=== PATIENT | male | born 1970 ===

== ENCOUNTER 2016-10-31 20:10 | Observation (INO) | payer BC ==
[2016-10-31 21:34] LABS: BASO # 0.1 K/uL (0.0-0.2); BASO % 0.9 % (0.0-2.0); EOS # 0.1 K/uL (0.0-0.7); EOS % 0.9 % (0.0-4.0); HEMATOCRIT 41.5 % (35.0-51.0); LYMPH # 1.8 K/uL (1.0-4.3); LYMPH % 20.3 % (20.0-40.0); MEAN CELL VOLUME 90.7 fl (80.0-94.0); MEAN CORPUSCULAR HEMOGLOBIN 30.2 pg (27.0-31.0); MEAN CORPUSCULAR HGB CONC 33.3 g/dL (33.0-37.0); MEAN PLATELET VOLUME 7.5 fl (7.2-11.7); MONO # 0.6 K/uL (0.0-0.8); MONO % 6.4 % (0.0-10.0); NEUT # 6.5 K/uL (1.8-7.0); NEUT % 71.5 % (50.0-75.0); RED CELL DISTRIBUTION WIDTH 13.9 % (11.5-14.5); WHITE BLOOD COUNT 9.1 K/uL (4.8-10.8)
--- NOTE | 2016-10-31 21:42 | ED PDOC ---
HPI: Psych/Substance Abuse Time Seen by Provider: 10/31/16 20:22 Chief Complaint (Nursing): Psychiatric Evaluation Chief Complaint (Provider): Psychiatric Evaluation History Per: Patient History/Exam Limitations: no limitations Onset/Duration Of Symptoms: Mins (just prior to arrival) Current Symptoms Are (Timing): Still Present Severity: Moderate Additional Complaint(s): 46 year old male with no pertinent medical history is brought into the ED by the [place] police department for a psychiatric evaluation. Patient was seen wandering on the street behaving bizarrely. Patient requested the removal of sharp objects upon his arrival. Patient was uncooperative with nursing staff. Patient reports recently travelling to [facility], where he injured his head and had a suture repair in the left temporal area. Patient states that he lives in the area (of the ED). He denies having any complaints at this time. PMD: Patient does not have a PMD Past Medical History Reviewed: Historical Data, Nursing Documentation, Vital Signs Vital Signs: Last Vital Signs Temp 100 F H 10/31/16 20:12 Pulse 101 H 10/31/16 20:12 Resp 18 10/31/16 20:12 BP 124/68 10/31/16 20:12 Pulse Ox 99 10/31/16 20:12 - Medical History PMH: No Chronic Diseases - Surgical History Other surgeries: myxoma surgery - Family History Family History: States: No Known Family Hx - Social History Current smoker - smoking cessation education provided: Yes Alcohol: None Drugs: Denies - Home Medications Home Medications: Ambulatory Orders Medication Instructions Recorded Unobtainable 11/01/16 - Allergies Allergies/Adverse Reactions: Allergies Allergy/AdvReac Type Severity Reaction Status Date / Time No Known Allergies Allergy Verified 11/01/16 09:05 Review of Systems ROS Statement: Except As Marked, All Systems Reviewed And Found Negative Physical Exam - Reviewed Nursing Documentation Reviewed: Yes Vital Signs Reviewed: Yes - Physical Exam Appears: Positive for: Well, Non-toxic, No Acute Distress (calm, cooperative) Head Exam: Positive for: ATRAUMATIC (non absorbable sutures in the left temporal area, healing well), NORMOCEPHALIC Skin: Positive for: Normal Color, Warm, Dry Eye Exam: Positive for: Normal appearance, EOMI, PERRL Cardiovascular/Chest: Positive for: Regular Rate, Rhythm Respiratory: Positive for: Normal Breath Sounds. Negative for: Respiratory Distress Gastrointestinal/Abdominal: Positive for: Normal Exam, Soft. Negative for: Tenderness Extremity: Positive for: Normal ROM Neurologic/Psych: Positive for: Alert, Oriented (3x) - Laboratory Results Result Diagrams: 10/31/16 21:27 10/31/16 21:27 - ECG O2 Sat by Pulse Oximetry: 99 (RA) Pulse Ox Interpretation: Normal - CT Scan/US CT head w/o contrast Other Rad Studies (CT/US): Read By Radiologist, Radiology Report Reviewed (see MDM section for findings) Medical Decision Making Medical Decision Makin:22 Initial impression: 46 year old male with acute psychosis. Rule out organic causes. Initial plan: crisis evaluation * CT head w/o contrast * alcohol serum * BMP * drug screen urinary * CBC * ativan 2mg IM * haldol 5mg IM * urinalysis * reevaluation 22:15 CT head read and reviewed by radiologist FINDINGS: [employer] Assistant view: Postsurgical changes of mandible. Brain: Mild atrophy. No intracranial hemorrhage. No definite edema. Ventricles: No hydrocephalus. 0.4 x 0.4 x 0.4 cm hyperdense lesion level of third ventricle. Bones/joints: No acute fracture. Soft tissues: Unremarkable. Sinuses: Scattered minimal mucosal thickening. Mastoid air cells: No mastoid effusion. Orbits: Unremarkable as visualized. IMPRESSION: 1. No definite acute intracranial abnormality. 2. Probable colloid cyst. 3. Incidental/non-acute findings are described above 22:40 Patient is being placed in ED observation pending crisis evalution. See ED observation section for further updates. Scribe Attestation: Documented by Naz Delgado, acting as a scribe for Tania Mirnada MD. Provider Scribe Attestation: All medical record entries made by the Scribe were at my direction and personally dictated by me. I have reviewed the chart and agree that the record accurately reflects my personal performance of the history, physical exam, medical decision making, and the department course for this patient. I have also personally directed, reviewed, and agree with the discharge instructions and disposition. ED OBSERVATION Date of observation admission: 10/31/16 Time of observation admission: 22:40 - Observation admission statement Patient is being placed in observation because:: Pending crisis evaluation. - Goals of Observation Goals of observation are:: Psychiatric stabilization. - Progress Note Progress Note: 10/31/16 22:40 Patient is sleeping comfortably. Vital signs are stable. 10/31/16 23:57 Patient is quietly sleeping, resting comfortably. Vital signs are stable. Disposition - Clinical Impression Clinical Impression: Adjustment disorder - Patient ED Disposition Is Patient to be Admitted: Transfer of Care - Disposition Disposition: Transfer of Care Disposition Time: 00:00 Condition: STABLE Patient Signed Over To: Matthew Dumont Handoff Comments: pending reevaluation after sedation and crisis evaluation
[2016-10-31 21:50] LABS: ALCOHOL SERUM < 10 mg/dl (0-10); BLOOD UREA NITROGEN 17 mg/dl (9-20); CALCIUM 9.9 mg/dL (8.4-10.2); CARBON DIOXIDE 23 mmol/L (22-30); CHLORIDE 108 mmol/L (98-107); GFR AFRICAN-AMERICAN > 60; GLUCOSE,RANDOM 121 mg/dL (75-110); POTASSIUM 3.5 MMOL/L (3.6-5.0); SODIUM 145 mmol/l (132-148)
--- NOTE | 2016-10-31 22:16 | CT ---
EXAM: CT Head Without Intravenous Contrast CLINICAL HISTORY: 46 years old, male; Signs and symptoms; Psychosis or psychotic disorder; Other: AMS bizarre TECHNIQUE: Axial computed tomography images of the head/brain without intravenous contrast. All CT scans at this facility use one or more dose reduction techniques, viz.: automated exposure control; ma/kV adjustment per patient size (including targeted exams where dose is matched to indication; i.e. head); or iterative reconstruction technique. Coronal and sagittal reformatted images were created and reviewed. COMPARISON: No relevant prior studies available. FINDINGS: Lean Manufacturing Engineer view: Postsurgical changes of mandible. Brain: Mild atrophy. No intracranial hemorrhage. No definite edema. Ventricles: No hydrocephalus. 0.4 x 0.4 x 0.4 cm hyperdense lesion level of third ventricle. Bones/joints: No acute fracture. Soft tissues: Unremarkable. Sinuses: Scattered minimal mucosal thickening. Mastoid air cells: No mastoid effusion. Orbits: Unremarkable as visualized. IMPRESSION: 1. No definite acute intracranial abnormality. 2. Probable colloid cyst. 3. Incidental/non-acute findings are described above.
[2016-11-01] VITALS: TEMP 98.1; O2SAT 99
--- NOTE | 2016-11-01 00:05 | ED PDOC ---
- Laboratory Results Result Diagrams: 10/31/16 21:27 10/31/16 21:27 - ECG O2 Sat by Pulse Oximetry: 99 (RA) Pulse Ox Interpretation: Normal Medical Decision Making Medical Decision Makin:00 Pt signed out to provider pending crisis evaluation. Scribe Attestation: Documented by Kayley Lockhart, acting as a scribe for Matthew Dumont MD. Provider Scribe Attestation: All medical record entries made by the Scribe were at my direction and personally dictated by me. I have reviewed the chart and agree that the record accurately reflects my personal performance of the history, physical exam, medical decision making, and the department course for this patient. I have also personally directed, reviewed, and agree with the discharge instructions and disposition. Disposition - Clinical Impression Clinical Impression: Adjustment disorder - POA Present On Arrival: None - Disposition Disposition: Routine/Home Disposition Time: 04:32 Condition: STABLE ED OBSERVATION Date of observation admission: 11/01/16 Time of observation admission: 00:00 - Observation admission statement Patient is being placed in observation because:: Time-intensive ED evaluation. - Goals of Observation Goals of observation are:: Results of ED workup, crisis evaluation, and eventual disposition. - Progress Note Progress Note: 11/01/16 00:00 Patient resting comfortably. Vitals are stable. Pending reevaluation and crisis evaluation. 11/01/16 01:30 Patient is resting comfortably. Vitals are stable. Pending reevaluation and crisis evaluation. 11/01/16 02:58 Vital signs stable. Patient is resting comfortably. Pending reevaluation and crisis evaluation. 11/01/16 04:30 Vital signs stable. Patient is resting comfortably. Pending reevaluation and crisis evaluation. 11/01/16 04:33 Patient has been evaluated by Crisis and does not meet criterion for psychiatric admission, and is psychiatrically stable for discharge home with a diagnosis of Adjustment Disorder. Outpatient follow up instructions provided by [employer].
[2016-11-01 06:03] VITALS: BP 135/62; PULSE 74; RESP 74
== END 2016-11-01 04:32 | disposition home or self-care (01) ==
LOC: H.ER 20:10 → H.EROBSV 22:41
PROVIDERS: ADMIT Emergency Medicine; ATTEND Emergency Medicine
DX: F43.20 Adjustment disorder, unspecified (principal); F17.200 Nicotine dependence, unspecified, uncomplicated
CPT/HCPCS: 70450; 80048; 85025; 96372; 99285; G0378; G0480; J1630; J2060

== ENCOUNTER 2016-11-01 08:48 | Emergency (ER) | payer BC ==
[2016-11-01 08:52] VITALS: TEMP 97
[2016-11-01 09:10] VITALS: BMI 27.3
[2016-11-01] MEDS ORDERED: Sodium Chloride 0.9% 500 ML IV ONE (09:13)
--- NOTE | 2016-11-01 09:13 | ED PDOC ---
HPI: Psych/Substance Abuse Time Seen by Provider: 11/01/16 08:54 Chief Complaint (Nursing): Psychiatric Evaluation Chief Complaint (Provider): Psychiatric Evaluation History Per: Patient History/Exam Limitations: no limitations Onset/Duration Of Symptoms: Hrs Additional Complaint(s): Patient is a 46 y/o M brought in by EMS for acting bizarre. Patient reporting that he was trying to walk home. He is AAOx3 and denies somatic complaints. He was evaluated in ED yesterday for same and was cleared by crisis after normal labs and CT head. He denies drug or alcohol use. He denies SI/HI, AH/ VH. Past Medical History Reviewed: Historical Data, Nursing Documentation, Vital Signs Vital Signs: Last Vital Signs Temp 97 F L 11/01/16 08:51 Pulse 102 H 11/01/16 08:51 Resp BP 142/85 11/01/16 08:51 Pulse Ox 99 11/01/16 08:51 - Medical History PMH: HTN Denies: Diabetes, Hepatitis, HIV, Seizures, Sexually Transmitted Disease - Family History Family History: States: Unknown Family Hx - Home Medications Home Medications: Ambulatory Orders Medication Instructions Recorded Unobtainable 11/01/16 - Allergies Allergies/Adverse Reactions: Allergies Allergy/AdvReac Type Severity Reaction Status Date / Time No Known Allergies Allergy Verified 11/01/16 09:05 Review of Systems ROS Statement: Except As Marked, All Systems Reviewed And Found Negative Constitutional: Negative for: Fever Cardiovascular: Negative for: Chest Pain, Palpitations, Paroxysmal Noc. Dyspnea Respiratory: Negative for: Cough, Shortness of Breath, SOB with Exertion Gastrointestinal: Negative for: Nausea, Vomiting, Abdominal Pain, Diarrhea, Constipation Genitourinary Male: Negative for: Dysuria Musculoskeletal: Negative for: Neck Pain Neurological: Negative for: Weakness, Numbness Psych: Negative for: Anxiety, Depression, Suicidal ideation (Homicidal ideation) , Other (Visual or auditory hallucinations) Physical Exam - Reviewed Nursing Documentation Reviewed: Yes Vital Signs Reviewed: Yes - Physical Exam Appears: Positive for: Non-toxic, No Acute Distress Head Exam: Positive for: ATRAUMATIC, NORMAL INSPECTION (Sutures to the left temporal region (same as documented yesterday)), NORMOCEPHALIC Skin: Positive for: Normal Color, Warm, Dry Eye Exam: Positive for: Normal appearance, EOMI Neck: Positive for: Normal, Supple Cardiovascular/Chest: Positive for: Regular Rate, Rhythm. Negative for: Murmur Respiratory: Positive for: Normal Breath Sounds. Negative for: Accessory Muscle Use, Respiratory Distress Gastrointestinal/Abdominal: Positive for: Normal Exam, Soft. Negative for: Tenderness Back: Positive for: Normal Inspection Extremity: Positive for: Normal ROM. Negative for: Pedal Edema Neurologic/Psych: Positive for: Alert, Oriented (x3), Gait (steady) - ECG O2 Sat by Pulse Oximetry: 99 (RA) Pulse Ox Interpretation: Normal Medical Decision Making Medical Decision Making: Time: 09:08 Initial impression: Psychiatric Evaluation Initial plan: --EKG --Acetaminophen --Alcohol Serum --Ammonia --CMP --Drug Screen, Urine --Salicylate --CBC w. diff --Chest x-ray --Sodium Chloride 500 mls/hr IV --Urinalysis --1:1 Obs CONT --Crisis Evaluation As Ordered Scribe Attestation: Documented by Sparkle Domínguez, acting as a scribe for Abida Perales MD. Provider Scribe Attestation: All medical record entries made by the Scribe were at my direction and personally dictated by me. I have reviewed the chart and agree that the record accurately reflects my personal performance of the history, physical exam, medical decision making, and the department course for this patient. I have also personally directed, reviewed, and agree with the discharge instructions and disposition. 9:35AM CBC and CMP and alcohol level WNL yesterday. Refusing additional bloodwork now. EKG shows NSR at 80bpm with normal intervals and no st changes. Cxray negative 11:43AM Crisis evaluated and cleared patient for discharge as he does not pose a danger to himself or others. Disposition - Clinical Impression Clinical Impression: Adjustment disorder - Disposition Disposition: Routine/Home Disposition Time: 11:44 Condition: GOOD Additional Instructions: Follow-up with PMD within 2 days. Return to ED if condition worsens. Forms: [employer] (Zimbabwean)
[2016-11-01 11:53] VITALS: BP 140/79; PULSE 91; RESP 20
--- NOTE | 2016-11-01 12:56 | CARD ---
APPROVED REPORT EKG Measurement Heart [id number] <Conclusion> Normal sinus rhythm Normal ECG
[2016-11-01 16:10] VITALS: O2SAT 99
--- NOTE | 2016-11-01 17:22 | RAD ---
HISTORY: altered COMPARISON: None available. TECHNIQUE: Chest, one view. FINDINGS: Examination limited by habitus. LUNGS: No focal consolidation. Please note that chest x-ray has limited sensitivity for the detection of pulmonary masses. PLEURA: No significant pleural effusion identified. No definite pneumothorax . CARDIOVASCULAR: Heart size appears within normal limits. OSSEOUS STRUCTURES: Degenerative changes. VISUALIZED UPPER ABDOMEN: Unremarkable. OTHER FINDINGS: None. IMPRESSION: No focal consolidation, significant pleural effusion, or definite pneumothorax identified.
== END 2016-11-01 11:53 | disposition home or self-care (01) ==
LOC: H.ER 08:48
DX: F43.20 Adjustment disorder, unspecified (principal); I10 Essential (primary) hypertension

== ENCOUNTER 2018-03-04 04:59 | Emergency (ER) | payer SELFPAY ==
[2018-03-04 05:10] VITALS: BMI 29.7
--- NOTE | 2018-03-04 05:50 | ED PDOC ---
HPI: Psych/Substance Abuse Time Seen by Provider: 03/04/18 05:06 Chief Complaint (Nursing): Psychiatric Evaluation Chief Complaint (Provider): Psychiatric Evaluation ED Caveat: Uncooperative History Per: EMS, Other ([place] [employer]) History/Exam Limitations: clinical condition Onset/Duration Of Symptoms: Mins (xPTA) Current Symptoms Are (Timing): Still Present Additional Complaint(s): 47 year old male arrives to ED via EMS and [place] [employer] for an evaluation of bizarre behavior prior to arrival. Unable to obtain further medical history as patient only responds to internal stimuli. PCP: none provided Past Medical History Vital Signs: Last Vital Signs Temp Pulse 119 H 03/04/18 05:07 Resp 21 03/04/18 05:07 BP 150/66 03/04/18 05:07 Pulse Ox 98 03/04/18 05:07 - Medical History PMH: HTN Denies: Diabetes, Hepatitis, HIV, Seizures, Sexually Transmitted Disease - Family History Family History: States: Unknown Family Hx - Home Medications Home Medications: Ambulatory Orders Medication Instructions Recorded Cephalexin [cephalexin] 500 mg PO TID #21 cap 03/04/18 - Allergies Allergies/Adverse Reactions: Allergies Allergy/AdvReac Type Severity Reaction Status Date / Time No Known Allergies Allergy Verified 11/01/16 09:05 Physical Exam - Reviewed Nursing Documentation Reviewed: Yes Vital Signs Reviewed: Yes - Physical Exam Appears: Positive for: No Acute Distress (poor state of hygiene) Head Exam: Positive for: ATRAUMATIC, NORMAL INSPECTION, NORMOCEPHALIC Skin: Positive for: Normal Color Eye Exam: Positive for: Normal appearance ENT: Positive for: Normal ENT Inspection Neck: Positive for: Normal, Painless ROM Cardiovascular/Chest: Positive for: Regular Rate, Rhythm Respiratory: Positive for: Normal Breath Sounds. Negative for: Respiratory Distress Extremity: Positive for: Normal ROM (upper/lower) Neurologic/Psych: Positive for: Alert, Other (observed to responding to internal stimuli). Negative for: Motor/Sensory Deficits - Laboratory Results Result Diagrams: 03/04/18 06:14 03/04/18 06:14 - ECG O2 Sat by Pulse Oximetry: 98 (RA) Pulse Ox Interpretation: Normal Medical Decision Making Medical Decision Making: Initial Impression: 47 year old male with acute psychosis. Initial Plan: * Labs * Accucheck * Crisis evaluation * 1:1 OBS Time: 514 --Due to safety risks of patient and staff, additional restraints, Ativan 1mg IM, and Haldol 5mg IM are ordered. Time: 615 --Accucheck: 102 mg/dL. Time: 699 --Patient to be endorsed to Dr. Azar, pending crisis evaluation and final disposition. Scribe Attestation: Documented by Radha Asencio, acting as a scribe for Matthew Dumont MD. Provider Scribe Attestation: All medical record entries made by the Scribe were at my direction and personally dictated by me. I have reviewed the chart and agree that the record accurately reflects my personal performance of the history, physical exam, medical decision making, and the department course for this patient. I have also personally directed, reviewed, and agree with the discharge instructions and disposition. Disposition - Clinical Impression Clinical Impression: Psychosis, UTI (urinary tract infection) - Disposition Referrals: [facility] [Outside] Disposition Time: 07:00 Condition: FAIR Additional Instructions: Followup with outpatient clinic for further testing. Return to ER for any concern for self. Complete course of antibiotics for UTI. Prescriptions: Cephalexin [cephalexin] 500 mg PO TID #21 cap Instructions: Urinary Tract Infections in Adults, Acute Psychosis (DC) Forms: [employer] (Surinamese)
[2018-03-04 06:38] LABS: BASO % 0.4 % (0.0-2.0); EOS # 0.1 K/uL (0.0-0.7); EOS % 0.6 % (0.0-4.0); HEMOGLOBIN 14.4 g/dL (12.0-18.0); LYMPH # 2.9 K/uL (1.0-4.3); LYMPH % 30.1 % (20.0-40.0); MEAN CELL VOLUME 92.4 fl (80.0-94.0); MEAN CORPUSCULAR HEMOGLOBIN 31.7 pg (27.0-31.0); MEAN CORPUSCULAR HGB CONC 34.3 g/dL (33.0-37.0); MONO # 0.7 K/uL (0.0-0.8); MONO % 7.6 % (0.0-10.0); NEUT # 5.9 K/uL (1.8-7.0); NEUT % 61.3 % (50.0-75.0); NRBC % 0.1 % (0.0-0.0); RBC 4.54 Mil/uL (4.40-5.90); RED CELL DISTRIBUTION WIDTH 13.9 % (11.5-14.5); WHITE BLOOD COUNT 9.5 K/uL (4.8-10.8)
[2018-03-04 06:47] LABS: ALB/GLOB RATIO 1.4 (1.0-2.1); ALBUMIN 4.5 g/dL (3.5-5.0); ALT/SGPT 100 U/L (21-72); AST/SGOT 79 U/L (17-59); BLOOD UREA NITROGEN 20 mg/dl (9-20); CALCIUM 9.2 mg/dL (8.4-10.2); GFR NON-AFRICAN AMERICAN > 60
--- NOTE | 2018-03-04 07:03 | ED PDOC ---
- Laboratory Results Result Diagrams: 03/04/18 06:14 03/04/18 06:14 - ECG O2 Sat by Pulse Oximetry: 98 (RA) Medical Decision Making Medical Decision Making: received 7am pending re-eval and crisis 1040a per crisis will be screened by [facility] 1p patient refusing to give urine, agreed to straight cath, UA collected 2pm patient mildly agitated, uncooperative. Additional medication haldol 5mg ordered for relief of agitation 215p UA reveals evidence UTI, initially refused to take medication thus rocephin ordered, then agreed hence keflex ordered. No evidence of sepsis. Pt denies recent sexual activity, states prior had UTI several years ago "in [place]". G/C ordered via urine and Urine culture ordered. 245p updated from crisis [facility] cleared for discharge, they state not threat to self or others, to be discharged w keflex for UTI and followup outpatient. Disposition - Clinical Impression Clinical Impression: Psychosis, UTI (urinary tract infection) - POA Present On Arrival: None - Disposition Referrals: [facility] [Outside] Disposition: Routine/Home Disposition Time: 15:00 Additional Instructions: Followup with outpatient clinic for further testing. Return to ER for any concern for self. Complete course of antibiotics for UTI. Prescriptions: Cephalexin [cephalexin] 500 mg PO TID #21 cap Instructions: Urinary Tract Infections in Adults, Acute Psychosis (DC) Forms: [employer] (Spanish)
[2018-03-04 10:50] VITALS: O2SAT 98
[2018-03-04 13:57] LABS: BARBITURATES, UR NEGATIVE (NEGATIVE); BENZODIAZEPINES, UR NEGATIVE (NEGATIVE); OPIATES, UR NEGATIVE (NEGATIVE); PHENCYCLIDINE, UR NEGATIVE (NEGATIVE)
[2018-03-04 14:09] VITALS: RESP 17
[2018-03-04 14:20] LABS: SQUAMOUS EPITHIAL 3 /hpf (0-5); URINE BACTERIA FEW (<OCC); URINE BILIRUBIN NEGATIVE (NEGATIVE); URINE BLOOD LARGE (NEGATIVE); URINE CLARITY CLOUDY (Clear); URINE COLOR AMBER (YELLOW); URINE GLUCOSE (UA) NEG (NEGATIVE); URINE HYALINE CAST 0-2 /hpf (0-2); URINE LEUKOCYTE ESTERASE MOD Leu/uL (Negative); URINE PROTEIN 30 mg/dL (NEGATIVE); URINE UROBILINOGEN 0.2-1.0 mg/dL (0.2-1.0); WBC CLUMPS OCC /hpf
[2018-03-04 15:04] VITALS: BP 131/79; PULSE 81; TEMP 98
[2018-03-04 16:36] LABS: BARBITURATES, UR NEGATIVE (NEGATIVE); BENZODIAZEPINES, UR NEGATIVE (NEGATIVE); OPIATES, UR NEGATIVE (NEGATIVE); PHENCYCLIDINE, UR NEGATIVE (NEGATIVE)
== END 2018-03-04 15:38 | disposition home or self-care (01) ==
LOC: H.ER 04:59
DX: F23 Brief psychotic disorder (principal); N39.0 Urinary tract infection, site not specified; I10 Essential (primary) hypertension
CPT/HCPCS: 80053; 81003; 82948; 85025; 87086; 87491; 87591; 96372; 99285; G0480; J1630; J2060

== ENCOUNTER 2018-03-05 09:32 | Emergency (ER) | payer SELFPAY ==
[2018-03-05 09:46] VITALS: BMI 31.3
[2018-03-05 09:47] VITALS: PULSE 112; RESP 18; TEMP 97.9; O2SAT 100
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
[2018-03-05 11:08] VITALS: BP 145/82
== END 2018-03-05 11:20 ==
LOC: H.ER 09:32
DX: F43.20 Adjustment disorder, unspecified (principal); N39.0 Urinary tract infection, site not specified; I10 Essential (primary) hypertension

== ENCOUNTER 2018-03-23 01:48 | Emergency (ER) | payer SELFPAY ==
[2018-03-23 01:49] VITALS: BMI 31.3
--- NOTE | 2018-03-23 02:51 | ED PDOC ---
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 Patient is a poor historian and is unable to give reliable history due to current condition. Patient was behaving bizarrely and playing loud music causing neighbors to call 911. On EMS arrival patient was acting strange and admitted to using marijuana. Denies any complaints on arrival to to ED. Patient is known to have history of psychosis from prior visits. Past Medical History Reviewed: Unable To Obtain (patient is unreliable historian) Vital Signs: Last Vital Signs Temp 98.3 F 03/23/18 01:53 Pulse 104 H 03/23/18 01:53 Resp 18 03/23/18 01:53 BP Pulse Ox 96 03/23/18 01:53 - Medical History PMH: HTN Denies: Diabetes, Hepatitis, HIV, Seizures, Sexually Transmitted Disease - Family History Family History: States: Unknown Family Hx - Home Medications Home Medications: Ambulatory Orders Medication Instructions Recorded Cephalexin [cephalexin] 500 mg PO TID #21 cap 03/04/18 - Allergies Allergies/Adverse Reactions: Allergies Allergy/AdvReac Type Severity Reaction Status Date / Time No Known Allergies Allergy Verified 11/01/16 09:05 Review of Systems Review Of Systems: ROS cannot be obtained secondary to pt's inabilty to answer questions. Physical Exam - Reviewed Nursing Documentation Reviewed: Yes Vital Signs Reviewed: Yes - Physical Exam Appears: Positive for: Well, Non-toxic, No Acute Distress Head Exam: Positive for: ATRAUMATIC, NORMOCEPHALIC Skin: Positive for: Normal Color, Warm, Dry Eye Exam: Positive for: EOMI, Normal appearance, PERRL ENT: Positive for: Normal ENT Inspection Neck: Positive for: Normal, Painless ROM Cardiovascular/Chest: Positive for: Regular Rate, Rhythm. Negative for: Murmur Respiratory: Positive for: Normal Breath Sounds. Negative for: Respiratory Distress Gastrointestinal/Abdominal: Positive for: Normal Exam, Soft. Negative for: Tenderness Back: Positive for: Normal Inspection. Negative for: L CVA Tenderness, R CVA Tenderness, Vertebral Tenderness Extremity: Positive for: Normal ROM. Negative for: Pedal Edema, Deformity Neurologic/Psych: Positive for: Alert, Oriented. Negative for: Motor/Sensory Deficits - Laboratory Results Result Diagrams: 03/23/18 04:12 03/23/18 04:12 - ECG O2 Sat by Pulse Oximetry: 96 (RA) Pulse Ox Interpretation: Normal Medical Decision Making Medical Decision Making: Time: 02:34 Initial Impression: 47 y/o male brought in for crisis evaluation Initial Plan: Patient is uncooperative and needs 4 point restraints as well as Haldol and Ativan * Alcohol serum * CMP * Drug Screen * Crisis Eval * ED Urine * CBC w/ diff * Ativan * Haldol * 1:1 Observation * 4 point Restraints * US Abdomen 07:00 Patient care endorsed to Dr. Azar pending crisis evaluation and reevaluation. Scribe Attestation: Documented by Arsenio Ernst acting as a scribe for Matthew Dumont MD. Provider Scribe Attestation: All medical record entries made by the Scribe were at my direction and personally dictated by me. I have reviewed the chart and agree that the record accurately reflects my personal performance of the history, physical exam, medical decision making, and the department course for this patient. I have also personally directed, reviewed, and agree with the discharge instructions and disposition. Disposition - Clinical Impression Clinical Impression: UTI (urinary tract infection) - Patient ED Disposition Is Patient to be Admitted: Transfer of Care - Disposition Disposition: Transfer of Care Disposition Time: 07:00 Condition: FAIR Forms: [facility] [employer] (Setswana) Patient Signed Over To: Jayson Azar III (pending crisis eval)
[2018-03-23 04:26] LABS: BASO % 0.3 % (0.0-2.0); EOS # 0.1 K/uL (0.0-0.7); EOS % 0.8 % (0.0-4.0); HEMOGLOBIN 13.3 g/dL (12.0-18.0); LYMPH # 2.7 K/uL (1.0-4.3); MEAN CELL VOLUME 91.6 fl (80.0-94.0); MEAN CORPUSCULAR HEMOGLOBIN 31.6 pg (27.0-31.0); MEAN CORPUSCULAR HGB CONC 34.5 g/dL (33.0-37.0); MEAN PLATELET VOLUME 7.8 fl (7.2-11.7); MONO # 0.7 K/uL (0.0-0.8); MONO % 7.4 % (0.0-10.0); NEUT # 5.5 K/uL (1.8-7.0); NEUT % 61.5 % (50.0-75.0); RBC 4.21 Mil/uL (4.40-5.90); RED CELL DISTRIBUTION WIDTH 13.7 % (11.5-14.5)
[2018-03-23 04:27] LABS: ALB/GLOB RATIO 1.4 (1.0-2.1); ALBUMIN 4.1 g/dL (3.5-5.0); ALT/SGPT 77 U/L (21-72); AST/SGOT 48 U/L (17-59); BLOOD UREA NITROGEN 13 mg/dl (9-20); CALCIUM 9.3 mg/dL (8.4-10.2); GFR NON-AFRICAN AMERICAN > 60
--- NOTE | 2018-03-23 07:04 | ED PDOC ---
- Laboratory Results Result Diagrams: 03/23/18 04:12 03/23/18 04:12 Lab Results: Total Bilirubin 0.4 mg/dl (0.2-1.3) 03/23/18 04:12 AST 48 U/L (17-59) 03/23/18 04:12 ALT 77 U/L (21-72) H D 03/23/18 04:12 Alkaline Phosphatase 123 U/L (38-126) 03/23/18 04:12 Total Protein 7.1 G/DL (6.3-8.2) 03/23/18 04:12 Albumin 4.1 g/dL (3.5-5.0) 03/23/18 04:12 Globulin 3.0 gm/dL (2.2-3.9) 03/23/18 04:12 Albumin/Globulin Ratio 1.4 (1.0-2.1) 03/23/18 04:12 - ECG O2 Sat by Pulse Oximetry: 96 (RA) Medical Decision Making Medical Decision Making: received at 7am pending crisis evaluation and dispo, UDS pending Disposition - Disposition Forms: [employer] (Citizen Of [place])
[2018-03-23] MEDS ORDERED: Ipratropium 0.02% Inhal Soln (0.5 mg/2.5 ml) UD IH ONE (13:59)
[2018-03-23 18:55] LABS: BARBITURATES, UR NEGATIVE (NEGATIVE); BENZODIAZEPINES, UR NEGATIVE (NEGATIVE); OPIATES, UR NEGATIVE (NEGATIVE); PHENCYCLIDINE, UR NEGATIVE (NEGATIVE)
--- NOTE | 2018-03-23 19:20 | ED PDOC ---
- Laboratory Results Result Diagrams: 03/23/18 04:12 03/23/18 04:12 Lab Results: Total Bilirubin 0.4 mg/dl (0.2-1.3) 03/23/18 04:12 AST 48 U/L (17-59) 03/23/18 04:12 ALT 77 U/L (21-72) H D 03/23/18 04:12 Alkaline Phosphatase 123 U/L (38-126) 03/23/18 04:12 Total Protein 7.1 G/DL (6.3-8.2) 03/23/18 04:12 Albumin 4.1 g/dL (3.5-5.0) 03/23/18 04:12 Globulin 3.0 gm/dL (2.2-3.9) 03/23/18 04:12 Albumin/Globulin Ratio 1.4 (1.0-2.1) 03/23/18 04:12 - ECG O2 Sat by Pulse Oximetry: 98 Medical Decision Making Medical Decision Making: Pt administered Macrobid for UTI. Disposition - Clinical Impression Clinical Impression: UTI (urinary tract infection), Substance induced mood disorder - POA Present On Arrival: None - Disposition Disposition: Transfer of Care Disposition Time: 00:00 Condition: STABLE Prescriptions: Nitrofurantoin Macrocrystals [Macrobid] 100 mg PO BID #14 cap Instructions: Urinary Tract Infection, Adult (DC), Marijuana Use and Addiction Forms: [facility] (Cymraes) Addendum Addendum: 03/23/18 19:00 Pt signed out by Dr. Azar pending urine and [facility] screening.
[2018-03-23] MEDS ORDERED: NICOTINE 2 MG GUM PO STA ×2 (21:32→23:07)
[2018-03-23 21:50] LABS: URINE BACTERIA FEW (<OCC); URINE BILIRUBIN NEGATIVE (NEGATIVE); URINE BLOOD NEGATIVE (NEGATIVE); URINE CLARITY SLIGHTY-CLOUDY (Clear); URINE COLOR YELLOW (YELLOW); URINE GLUCOSE (UA) NEG (NEGATIVE); URINE LEUKOCYTE ESTERASE MOD Leu/uL (Negative); URINE PROTEIN NEGATIVE (NEGATIVE); URINE UROBILINOGEN 0.2-1.0 mg/dL (0.2-1.0)
[2018-03-23 23:16] VITALS: BP 140/87; PULSE 84; RESP 18; TEMP 98; O2SAT 98
--- NOTE | 2018-03-24 00:05 | ED PDOC ---
- Laboratory Results Result Diagrams: 03/23/18 04:12 03/23/18 04:12 Lab Results: Total Bilirubin 0.4 mg/dl (0.2-1.3) 03/23/18 04:12 AST 48 U/L (17-59) 03/23/18 04:12 ALT 77 U/L (21-72) H D 03/23/18 04:12 Alkaline Phosphatase 123 U/L (38-126) 03/23/18 04:12 Total Protein 7.1 G/DL (6.3-8.2) 03/23/18 04:12 Albumin 4.1 g/dL (3.5-5.0) 03/23/18 04:12 Globulin 3.0 gm/dL (2.2-3.9) 03/23/18 04:12 Albumin/Globulin Ratio 1.4 (1.0-2.1) 03/23/18 04:12 Urine Color Yellow (YELLOW) 03/23/18 21:20 Urine Clarity Slighty-cloudy (Clear) 03/23/18 21:20 Urine pH 7.0 (5.0-8.0) 03/23/18 21:20 Ur Specific [place] 1.011 (1.003-1.030) 03/23/18 21:20 Urine Protein Negative mg/dL (NEGATIVE) 03/23/18 21:20 Urine Glucose (UA) Neg mg/dL (NEGATIVE) 03/23/18 21:20 Urine Ketones Negative mg/dL (NEGATIVE) 03/23/18 21:20 Urine Blood Negative (NEGATIVE) 03/23/18 21:20 Urine Nitrate Positive (NEGATIVE) H 03/23/18 21:20 Urine Bilirubin Negative (NEGATIVE) 03/23/18 21:20 Urine Urobilinogen 0.2-1.0 mg/dL (0.2-1.0) 03/23/18 21:20 Ur Leukocyte Esterase Mod Rowena/uL (Negative) 03/23/18 21:20 Urine RBC (Auto) 3 /hpf (0-3) 03/23/18 21:20 Urine Microscopic WBC 21 /hpf (0-5) H 03/23/18 21:20 Urine Bacteria Few (<OCC) H 03/23/18 21:20 - ECG O2 Sat by Pulse Oximetry: 98 Medical Decision Making Medical Decision Making: Time: 00:00 --Patient endorsed to provider by Dr. Cash, pending [facility] screening. Time: 126 --As per [facility] screener, patient is medically stable for discharge home and requires no further treatment in the ED at this time. Counseling was provided and all questions were answered regarding diagnosis. Rx for Macrobid 100mg given for UTI. There is agreement to discharge plan. Return if symptoms persist or worsen. Clinical Impression: Substance-induced mood disorder; UTI Scribe Attestation: Documented by Radha Asencio, acting as a scribe for Matthew Dumont MD. Provider Scribe Attestation: All medical record entries made by the Scribe were at my direction and personally dictated by me. I have reviewed the chart and agree that the record accurately reflects my personal performance of the history, physical exam, medical decision making, and the department course for this patient. I have also personally directed, reviewed, and agree with the discharge instructions and disposition. Disposition Counseled Patient/Family Regarding: Studies Performed, Diagnosis - Clinical Impression Clinical Impression: UTI (urinary tract infection), Substance induced mood disorder - POA Present On Arrival: None - Disposition Disposition: Routine/Home Disposition Time: 01:27 Condition: STABLE Prescriptions: Nitrofurantoin Macrocrystals [Macrobid] 100 mg PO BID #14 cap Instructions: Urinary Tract Infection, Adult (DC), Marijuana Use and Addiction Forms: [employer] (Indonesian)
== END 2018-03-24 01:50 | disposition home or self-care (01) ==
LOC: H.ER 01:48
DX: F19.10 Other psychoactive substance abuse, uncomplicated (principal); N39.0 Urinary tract infection, site not specified
CPT/HCPCS: 80053; 81003; 82948; 85025; 87086; 87181; 96372; 99285; G0480; J1630; J2060; J3486

== ENCOUNTER 2018-03-24 10:32 | Emergency (ER) | payer SELFPAY ==
[2018-03-24 10:36] VITALS: BMI 25.8
--- NOTE | 2018-03-24 11:39 | ED PDOC ---
HPI: Psych/Substance Abuse Time Seen by Provider: 03/24/18 10:38 Chief Complaint (Nursing): Psychiatric Evaluation Chief Complaint (Provider): Psychiatric Evaluation History Per: Patient History/Exam Limitations: no limitations Onset/Duration Of Symptoms: Mins (prior to arrival) Current Symptoms Are (Timing): Still Present Additional Complaint(s): 47 year old male presents to the ED via EMS for a psychiatric evaluation. 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 Patient currently reports still wanting to go to [employer] classes and offers no other complaints. Of note, patient was d/c from [facility] earlier this morning after being screened by [facility] and cleared to go home. Additionally, patient says that he was prescribed abx for a UTI and has the script with him, but has not filled it. Otherwise denies si/hi, auditory/ visual hallucinations, fever, abdominal pain, and back pain. PMD: none provided Past Medical History Reviewed: Historical Data, Nursing Documentation, Vital Signs Vital Signs: Last Vital Signs Temp 97.8 F 03/24/18 10:35 Pulse 101 H 03/24/18 10:35 Resp 17 03/24/18 10:35 BP 154/97 H 03/24/18 10:35 Pulse Ox 98 03/24/18 10:35 - Medical History PMH: HTN Denies: Diabetes, Hepatitis, HIV, Chronic Kidney Disease, Seizures, Sexually Transmitted Disease - Surgical History Surgical History: No Surg Hx - Family History Family History: States: Unknown Family Hx - Social History Current smoker - smoking cessation education provided: No Ex-Smoker (has not smoked in the last 12 months): Yes Alcohol: Other (daily) Drugs: Other (PCP) - Home Medications Home Medications: Ambulatory Orders Medication Instructions Recorded Cephalexin [cephalexin] 500 mg PO TID #21 cap 03/04/18 Nitrofurantoin Macrocrystals 100 mg PO BID #14 cap 03/24/18 [Macrobid] - Allergies Allergies/Adverse Reactions: Allergies Allergy/AdvReac Type Severity Reaction Status Date / Time No Known Allergies Allergy Verified 11/01/16 09:05 Review of Systems ROS Statement: Except As Marked, All Systems Reviewed And Found Negative Constitutional: Negative for: Fever Gastrointestinal: Negative for: Abdominal Pain Musculoskeletal: Negative for: Back Pain Psych: Negative for: Suicidal ideation (or HI), Other (auditory / visual hallucinations) Physical Exam - Reviewed Nursing Documentation Reviewed: Yes Vital Signs Reviewed: Yes - Physical Exam Appears: Positive for: No Acute Distress Head Exam: Positive for: ATRAUMATIC, NORMOCEPHALIC Skin: Positive for: Normal Color, Warm Eye Exam: Positive for: Normal appearance Neck: Positive for: Normal, Painless ROM, Supple Cardiovascular/Chest: Positive for: Regular Rate, Rhythm Respiratory: Positive for: Normal Breath Sounds. Negative for: Respiratory Distress Gastrointestinal/Abdominal: Positive for: Normal Exam, Soft. Negative for: Tenderness Back: Positive for: Normal Inspection. Negative for: L CVA Tenderness, R CVA Tenderness Extremity: Positive for: Normal ROM Neurologic/Psych: Positive for: Alert, Oriented (x3), Mood/Affect (calm, cooperative, but bizarre) - ECG O2 Sat by Pulse Oximetry: 98 (RA) Pulse Ox Interpretation: Normal - Progress ED Course And Treament: Pt. evaluated by [facility] screener who accepted pt. Medical Decision Making Medical Decision Making: Time: 1118 Initial Impression: psychiatric evaluation Initial Plan: --Crisis evaluation --Drug screen ordered as per request of crisis secondary to patients history of drug abuse, most notably PCP. --Macrobid 100mg PO ordered Scribe Attestation: Documented by Lisa Good, acting as a scribe for Cooper Lucero PA-C. Provider Scribe Attestation: All medical record entries made by the Scribe were at my direction and personally dictated by me. I have reviewed the chart and agree that the record accurately reflects my personal performance of the history, physical exam, medical decision making, and the department course for this patient. I have also personally directed, reviewed, and agree with the discharge instructions and disposition. 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
[2018-03-24 13:08] LABS: BARBITURATES, UR NEGATIVE (NEGATIVE); BENZODIAZEPINES, UR NEGATIVE (NEGATIVE); OPIATES, UR NEGATIVE (NEGATIVE); PHENCYCLIDINE, UR NEGATIVE (NEGATIVE)
--- NOTE | 2018-03-24 20:39 | ED PDOC ---
- ECG O2 Sat by Pulse Oximetry: 98 (RA) Pulse Ox Interpretation: Normal Medical Decision Making Medical Decision Making: Case endorsed to feature writer, Adonis KHALIL, at 1999 due to shift change. Pertinent details reviewed. Patient accepted to [facility] pending bed availability. Patient resting comfortably on evaluation with no complaints. Utox: negative Serum alcohol < 10. 2200 Patient resting comfortably, no distress noted. 0100 Crisis requesting EKG and CXR for medical clearance. CXR and EKG ordered. 0115 EKG: NSR @ 98bpm, (-) ST elevation; QTc 434 0200 CXR: no acute disease as read by Adonis KHALIL 0330 Patient sleeping comfortably. 0500 Patient sleeping comfortably. 0600 Continuation of care per Dr Madrigal. 0700 Case endorsed to ED MD Hernandez pending [facility] bed availability. Disposition Counseled Patient/Family Regarding: Studies Performed, Diagnosis - Clinical Impression Clinical Impression: Paranoid schizophrenia - POA Present On Arrival: None - Disposition Disposition: Transfer of Care (Case endorsed to ED MD Hernandez pending [facility] bed availability.) Disposition Time: 07:00 Condition: FAIR Results - Lab Results Lab Results: 03/24/18 03/24/18 14:35 12:16 Urine Opiates Screen Negative Urine Methadone Screen Negative Ur Barbiturates Screen Negative Ur Phencyclidine Scrn Negative Ur Amphetamines Screen Negative U Benzodiazepines Scrn Negative U Oth Cocaine Metabols Negative U Cannabinoids Screen Negative Alcohol, Quantitative < 10
--- NOTE | 2018-03-25 09:56 | RAD ---
Date of service: 03/25/2018 HISTORY: psych admit COMPARISON: Portable chest 11/01/2016. FINDINGS: LUNGS: No active pulmonary disease. PLEURA: No significant pleural effusion identified, no pneumothorax apparent. CARDIOVASCULAR: No aortic atherosclerotic calcification present. Normal cardiac size. No pulmonary vascular congestion. OSSEOUS STRUCTURES: No significant abnormalities. VISUALIZED UPPER ABDOMEN: Normal. OTHER FINDINGS: None. IMPRESSION: No interval acute cardiopulmonary disease appreciated.
--- NOTE | 2018-03-25 17:44 | ED PDOC ---
- ECG O2 Sat by Pulse Oximetry: 95 - Progress ED Course And Treament: 1500: Took over care from Dr. Hernandez. [facility] transfer. He was medically cleared by previous attending/provider. 1745: Pt. found to have temp. Has been dx with uti. Will give scheduled macrobid and tylenol. 2100: Stable. Afebrile. To be transferred [facility]. Disposition - Clinical Impression Clinical Impression: Paranoid schizophrenia - POA Present On Arrival: None - Disposition Disposition: Other Institution Disposition Time: 21:10 Condition: STABLE
[2018-03-25 20:58] VITALS: BP 125/72; PULSE 103; RESP 20; TEMP 99.1
[2018-03-25 21:10] VITALS: O2SAT 95
--- NOTE | 2018-03-25 21:14 | CARD ---
APPROVED REPORT Date of service: 03/25/2018 EKG Measurement Heart [id number] OR 128P46 [id number] <Conclusion> Normal sinus rhythm Normal ECG
== END 2018-03-25 21:40 | disposition short-term general hospital (02) ==
LOC: H.ER 10:32
DX: F20.0 Paranoid schizophrenia (principal); Z00.8 Encounter for other general examination; I10 Essential (primary) hypertension; Z87.891 Personal history of nicotine dependence
CPT/HCPCS: 99285; G0480

== ENCOUNTER 2018-05-14 02:15 | Emergency (ER) | payer MEDICAID ==
[2018-05-14 02:15] VITALS: BMI 25.8
[2018-05-14 02:50] VITALS: O2SAT 97
--- NOTE | 2018-05-14 03:53 | ED PDOC ---
HPI: Psych/Substance Abuse Time Seen by Provider: 05/14/18 03:31 Chief Complaint (Nursing): Psychiatric Evaluation Chief Complaint (Provider): Psychiatric Evaluation History Per: Patient History/Exam Limitations: no limitations Onset/Duration Of Symptoms: Days (1) Current Symptoms Are (Timing): Still Present Additional Complaint(s): 47 year old male with PMHx of schizophrenia presents to the ED complaining of dizziness since last night. 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 Also reports his legs hurt. Otherwise, denies SI/HI, hallucinations, hearing voices, drugs or alcohol use. PMD: Bhavna Prabhakar Past Medical History Reviewed: Historical Data, Nursing Documentation, Vital Signs Vital Signs: Last Vital Signs Temp 97.5 F L 05/14/18 02:42 Pulse 99 H 05/14/18 02:42 Resp 19 05/14/18 02:42 BP 172/80 H 05/14/18 02:42 Pulse Ox 97 05/14/18 02:42 - Medical History PMH: HTN, Schizophrenia Denies: Diabetes, Hepatitis, HIV, Chronic Kidney Disease, Seizures, Sexually Transmitted Disease - Family History Family History: States: Unknown Family Hx - Home Medications Home Medications: Ambulatory Orders Medication Instructions Recorded Benztropine [Cogentin] 1 mg PO DAILY 04/21/18 Famotidine [Pepcid] 20 mg PO BID 04/21/18 OLANZapine [Zyprexa] 10 mg PO Q12 04/21/18 traZODone [Desyrel] 50 mg PO HS 04/21/18 Divalproex [Depakote DR(*BID*)] 1,500 mg PO HS 15 Days #15 05/04/18 Divalproex [Depakote DR(*BID*)] 500 mg PO DAILY tcp 05/04/18 Famotidine [Pepcid] 20 mg PO BID 30 Days #30 tab 05/04/18 Risperidone [Risperdal M-TAB] 2 mg PO DAILY odt 05/04/18 Risperidone [Risperdal M-TAB] 3 mg PO HS odt 05/04/18 traZODone [Desyrel] 200 mg PO HS 15 Days #30 tab 05/04/18 - Allergies Allergies/Adverse Reactions: Allergies Allergy/AdvReac Type Severity Reaction Status Date / Time No Known Allergies Allergy Verified 11/01/16 09:05 Review of Systems ROS Statement: Except As Marked, All Systems Reviewed And Found Negative Constitutional: Negative for: Fever Cardiovascular: Negative for: Chest Pain Respiratory: Negative for: Cough Musculoskeletal: Positive for: Leg Pain Neurological: Positive for: Dizziness Psych: Negative for: Suicidal ideation, Other (homicidal ideation) Physical Exam - Reviewed Nursing Documentation Reviewed: Yes Vital Signs Reviewed: Yes - Physical Exam Appears: Positive for: Non-toxic, No Acute Distress Head Exam: Positive for: ATRAUMATIC, NORMAL INSPECTION, NORMOCEPHALIC Skin: Positive for: Normal Color, Warm, Dry Eye Exam: Positive for: Normal appearance (patient makes no eye contact), EOMI, PERRL ENT: Positive for: Normal ENT Inspection Neck: Positive for: Normal, Painless ROM, Supple. Negative for: Decreased ROM Cardiovascular/Chest: Positive for: Regular Rate, Rhythm. Negative for: Murmur Respiratory: Positive for: Normal Breath Sounds. Negative for: Decreased Breath Sounds, Respiratory Distress Gastrointestinal/Abdominal: Positive for: Normal Exam, Soft. Negative for: Tenderness Back: Positive for: Normal Inspection Extremity: Positive for: Normal ROM. Negative for: Tenderness, Pedal Edema, Deformity Neurologic/Psych: Positive for: Alert, Oriented (x3) - Laboratory Results Result Diagrams: 05/14/18 05:40 05/14/18 05:40 - ECG O2 Sat by Pulse Oximetry: 97 (RA) Pulse Ox Interpretation: Normal Medical Decision Making Medical Decision Making: Time: 331 Impression: psychiatric evaluation Plan: Crisis evaluation Reevaluation [address] Oquendo by Dr. Navarro pending [facility] [place]. Patient calm, cooperative and patient is on 1:1 observation. Scribe Attestation: Documented by Verónica Fletcher, acting as a scribe for Naz Navarro MD Provider Scribe Attestation: All medical record entries made by the Scribe were at my direction and personally dictated by me. I have reviewed the chart and agree that the record accurately reflects my personal performance of the history, physical exam, medical decision making, and the department course for this patient. I have also personally directed, reviewed, and agree with the discharge instructions and disposition. Disposition - Disposition Forms: [employer] (Kittitian)
[2018-05-14 05:53] LABS: BASO % 0.4 % (0.0-2.0); EOS # 0.1 K/uL (0.0-0.7); HEMOGLOBIN 13.7 g/dL (12.0-18.0); LYMPH # 3.5 K/uL (1.0-4.3); LYMPH % 31.3 % (20.0-40.0); MEAN CELL VOLUME 89.2 fl (80.0-94.0); MEAN CORPUSCULAR HEMOGLOBIN 30.1 pg (27.0-31.0); MEAN CORPUSCULAR HGB CONC 33.8 g/dL (33.0-37.0); MEAN PLATELET VOLUME 7.4 fl (7.2-11.7); MONO # 1.1 K/uL (0.0-0.8); MONO % 9.8 % (0.0-10.0); NEUT # 6.5 K/uL (1.8-7.0); NEUT % 57.5 % (50.0-75.0); NRBC % 0.1 % (0.0-0.0); RBC 4.56 Mil/uL (4.40-5.90); RED CELL DISTRIBUTION WIDTH 13.8 % (11.5-14.5); WHITE BLOOD COUNT 11.3 K/uL (4.8-10.8)
[2018-05-14 06:04] LABS: BLOOD UREA NITROGEN 15 mg/dl (9-20); CALCIUM 9.7 mg/dL (8.4-10.2); GFR NON-AFRICAN AMERICAN > 60
--- NOTE | 2018-05-14 07:12 | ED PDOC ---
- Laboratory Results Result Diagrams: 05/14/18 05:40 05/14/18 05:40 - ECG O2 Sat by Pulse Oximetry: 97 Medical Decision Making Medical Decision Making: Time: 0700 Patient endorsed to provider from Naz Navarro MD. Pending [facility] screening. Scribe Attestation: Documented by Marcus Larry, acting as a scribe for Chica Ouqendo MD. Provider Scribe Attestation: All medical record entries made by the Scribe were at my direction and personall y dictated by me. I have reviewed the chart and agree that the record accurately reflects my personal performance of the history, physical exam, medical decision making, and the department course for this patient. I have also personally directed, reviewed, and agree with the discharge instructions and disposition. Patient cleared by [facility] for discharge Disposition Doctor Will See Patient In The: Office Counseled Patient/Family Regarding: Diagnosis, Need For Followup - Clinical Impression Clinical Impression: Schizophrenia - POA Present On Arrival: None - Disposition Disposition: Routine/Home Disposition Time: 14:48 Instructions: Schizophrenia Forms: [employer] (South African)
[2018-05-14 07:28] LABS: BARBITURATES, UR NEGATIVE (NEGATIVE); BENZODIAZEPINES, UR NEGATIVE (NEGATIVE); OPIATES, UR NEGATIVE (NEGATIVE); PHENCYCLIDINE, UR NEGATIVE (NEGATIVE)
[2018-05-14 09:34] VITALS: BP 142/90; TEMP 98.7
--- NOTE | 2018-05-14 09:52 | CARD ---
APPROVED REPORT Date of service: 05/14/2018 EKG Measurement Heart [id number] 130P55 [id number] <Conclusion> Normal sinus rhythm Normal ECG
--- NOTE | 2018-05-14 11:23 | RAD ---
Date of service: 05/14/2018 HISTORY: possible admission COMPARISON: Chest radiograph dated 04/21/2018. FINDINGS: LUNGS: No active pulmonary disease. PLEURA: No significant pleural effusion identified, no pneumothorax apparent. CARDIOVASCULAR: No aortic atherosclerotic calcification present. Cardiomediastinal silhouette stably enlarged. OSSEOUS STRUCTURES: Unchanged. VISUALIZED UPPER ABDOMEN: Normal. OTHER FINDINGS: None. IMPRESSION: No active disease.
[2018-05-14 12:06] LABS: URINE BACTERIA OCC (<OCC); URINE BILIRUBIN NEGATIVE (NEGATIVE); URINE BLOOD NEGATIVE (NEGATIVE); URINE CLARITY SLIGHTY-CLOUDY (Clear); URINE COLOR YELLOW (YELLOW); URINE GLUCOSE (UA) NEG (NEGATIVE); URINE LEUKOCYTE ESTERASE SMALL Leu/uL (Negative); URINE PROTEIN NEGATIVE (NEGATIVE); URINE UROBILINOGEN 0.2-1.0 mg/dL (0.2-1.0)
[2018-05-14] MEDS ORDERED: Tmp-Smz 800 mg-160 mg DS Tab PO STA (13:01)
[2018-05-14 15:30] VITALS: PULSE 90; RESP 18
== END 2018-05-14 15:00 | disposition home or self-care (01) ==
LOC: H.ER 02:15
DX: F20.9 Schizophrenia, unspecified (principal); I10 Essential (primary) hypertension; Z00.8 Encounter for other general examination

== ENCOUNTER 2018-05-17 01:12 | Emergency (ER) | payer MEDICAID ==
[2018-05-17 01:12] VITALS: BMI 25.8
--- NOTE | 2018-05-17 02:51 | ED PDOC ---
HPI: Psych/Substance Abuse Time Seen by Provider: 05/17/18 01:25 Chief Complaint (Nursing): Medical Clearance Chief Complaint (Provider): Medical Clearance ED Caveat: Uncooperative History Per: Patient History/Exam Limitations: no limitations Current Symptoms Are (Timing): Still Present Suicide/Self Injury Attempted (Context): None Involuntary Hold By: Local Law Enforcement Additional Complaint(s): 47 year old male with a history of schizophrenia under arrest by [place] [employer] brought in for medical and psychiatric clearance. He refuses to give appropriate answers when questioned and appears internally preoccupied. Patient was observed making sexual comments to nursing staff. Denies any medical complaints. PMD: none provided Past Medical History Reviewed: Historical Data, Nursing Documentation, Vital Signs Vital Signs: Last Vital Signs Temp 98.2 F 05/17/18 01:16 Pulse 111 H 05/17/18 01:16 Resp 18 05/17/18 01:16 BP 149/98 H 05/17/18 01:16 Pulse Ox 98 05/17/18 01:16 - Medical History PMH: Schizophrenia Denies: Diabetes, Hepatitis, HIV, HTN, Chronic Kidney Disease, Seizures, Sexually Transmitted Disease - Surgical History Surgical History: No Surg Hx - Family History Family History: States: Unknown Family Hx - Home Medications Home Medications: Ambulatory Orders Medication Instructions Recorded Benztropine [Cogentin] 1 mg PO DAILY 04/21/18 Famotidine [Pepcid] 20 mg PO BID 04/21/18 OLANZapine [Zyprexa] 10 mg PO Q12 04/21/18 traZODone [Desyrel] 50 mg PO HS 04/21/18 Divalproex [Depakote DR(*BID*)] 1,500 mg PO HS 15 Days #15 05/04/18 Divalproex [Depakote DR(*BID*)] 500 mg PO DAILY tcp 05/04/18 Famotidine [Pepcid] 20 mg PO BID 30 Days #30 tab 05/04/18 Risperidone [Risperdal M-TAB] 2 mg PO DAILY odt 05/04/18 Risperidone [Risperdal M-TAB] 3 mg PO HS odt 05/04/18 traZODone [Desyrel] 200 mg PO HS 15 Days #30 tab 05/04/18 - Allergies Allergies/Adverse Reactions: Allergies Allergy/AdvReac Type Severity Reaction Status Date / Time No Known Allergies Allergy Verified 11/01/16 09:05 Review of Systems ROS Statement: Except As Marked, All Systems Reviewed And Found Negative Psych: Positive for: Other (internal preoccupation) Physical Exam - Reviewed Nursing Documentation Reviewed: Yes Vital Signs Reviewed: Yes - Physical Exam Appears: Positive for: Non-toxic, No Acute Distress Head Exam: Positive for: ATRAUMATIC, NORMAL INSPECTION, NORMOCEPHALIC Skin: Positive for: Normal Color, Warm, Dry Eye Exam: Positive for: EOMI, Normal appearance, PERRL Neck: Positive for: Normal, Painless ROM, Supple Cardiovascular/Chest: Positive for: Regular Rate, Rhythm. Negative for: Murmur Respiratory: Positive for: Normal Breath Sounds. Negative for: Respiratory Distress Gastrointestinal/Abdominal: Positive for: Normal Exam, Soft. Negative for: Ten derness Back: Positive for: Normal Inspection. Negative for: L CVA Tenderness, R CVA Tenderness Extremity: Positive for: Normal ROM Neurologic/Psych: Positive for: Alert, Oriented - ECG O2 Sat by Pulse Oximetry: 98 (RA) Pulse Ox Interpretation: Normal Medical Decision Making Medical Decision Makin:25 Impression: 47 year old male here for psychiatric evaluation in setting of known schizophrenia Crisis evaluation 02:55 Patient was seen and evaluated by crisis. As per crisis, this is his baseline. Stable for discharge. Diagnosis is schizophrenia. Scribe Attestation: Documented by Marce Chapa acting as a scribe for Matthew Dumont MD Provider Scribe Attestation: All medical record entries made by the Scribe were at my direction and personally dictated by me. I have reviewed the chart and agree that the record accurately reflects my personal performance of the history, physical exam, medical decision making, and the department course for this patient. I have also personally directed, reviewed, and agree with the discharge instructions and disposition. Disposition - Clinical Impression Clinical Impression: Schizophrenia - Disposition Disposition Time: 02:45 Condition: STABLE Additional Instructions: Patient is medically and psychiatrically stable for incarceration Instructions: Schizophrenia, General (DC) Forms: [employer] (Korean)
[2018-05-17 09:22] VITALS: BP 155/96; PULSE 91; RESP 18; TEMP 97.8; O2SAT 98
== END 2018-05-17 04:17 ==
LOC: H.ER 01:12
DX: F20.9 Schizophrenia, unspecified (principal)

== ENCOUNTER 2018-05-17 06:19 | Emergency (ER) | payer MEDICAID ==
[2018-05-17 06:20] VITALS: BMI 25.8
--- NOTE | 2018-05-17 08:10 | ED PDOC ---
HPI: Psych/Substance Abuse Time Seen by Provider: 05/17/18 08:07 Chief Complaint (Nursing): Medical Clearance Chief Complaint (Provider): panic attack History Per: Patient, Other ([place] [employer]) History/Exam Limitations: other (scizophrenia and preoccupied) Onset/Duration Of Symptoms: Persistent Current Symptoms Are (Timing): Still Present Suicide/Self Injury Attempted (Context): None Modifying Factor(s): None Severity: None Associated Symptoms: Suicidal Thoughts Involuntary Hold By: Local Law Enforcement Additional Complaint(s): 47 yo M presents for the second time today in police custody. Pt was previously medically and psychiatrically cleared but reportedly stated he was suicidal while in police booking and was brought back to the emergency department. Pt now states that he is going to have a panic attack. Denies attempting to harm himself or others. Pt is internally pre-occupied and continues to make innapropriate comments to staff. Past Medical History Reviewed: Historical Data, Nursing Documentation, Vital Signs Vital Signs: Last Vital Signs Temp 98.2 F 05/17/18 06:22 Pulse 92 H 05/17/18 06:22 Resp 17 05/17/18 06:22 BP 138/90 05/17/18 06:22 Pulse Ox 98 05/17/18 06:22 ELSI Report Viewed: Yes - Medical History PMH: Schizophrenia Denies: Diabetes, Hepatitis, HIV, HTN, Chronic Kidney Disease, Seizures, Sexually Transmitted Disease - Family History Family History: States: Unknown Family Hx - Home Medications Home Medications: Ambulatory Orders Medication Instructions Recorded Benztropine [Cogentin] 1 mg PO DAILY 04/21/18 Famotidine [Pepcid] 20 mg PO BID 04/21/18 OLANZapine [Zyprexa] 10 mg PO Q12 04/21/18 traZODone [Desyrel] 50 mg PO HS 04/21/18 Divalproex [Depakote DR(*BID*)] 1,500 mg PO HS 15 Days #15 05/04/18 Divalproex [Depakote DR(*BID*)] 500 mg PO DAILY tcp 05/04/18 Famotidine [Pepcid] 20 mg PO BID 30 Days #30 tab 05/04/18 Risperidone [Risperdal M-TAB] 2 mg PO DAILY odt 02/21/19 Risperidone [Risperdal M-TAB] 3 mg PO HS odt 05/04/18 traZODone [Desyrel] 200 mg PO HS 15 Days #30 tab 05/04/18 - Allergies Allergies/Adverse Reactions: Allergies Allergy/AdvReac Type Severity Reaction Status Date / Time No Known Allergies Allergy Verified 11/01/16 09:05 Physical Exam - Reviewed Vital Signs Reviewed: Yes - Physical Exam Appears: Positive for: Well, Non-toxic, No Acute Distress Head Exam: Positive for: ATRAUMATIC Skin: Positive for: Normal Color, Warm, Dry Eye Exam: Positive for: Normal appearance Cardiovascular/Chest: Positive for: Regular Rate, Rhythm Respiratory: Positive for: Normal Breath Sounds Gastrointestinal/Abdominal: Positive for: Normal Exam Back: Negative for: L CVA Tenderness, R CVA Tenderness Rectal: Positive for: Deferred Extremity: Positive for: Normal ROM Neurologic/Psych: Positive for: Alert, leadership program internship II-XII, Oriented, Mood/Affect (internally preoccupied and requires reorienting to get answers to questions.) - Laboratory Results Result Diagrams: 05/17/18 10:25 05/17/18 10:25 - ECG O2 Sat by Pulse Oximetry: 98 Medical Decision Making Medical Decision Making: Pt in police custody here for medical/psychiatric clearance. No indication for further medical workup. Crisis evaluation consult has been placed. 9:25 Patient screened by psychiatrist/[facility] for admission. Ordering medical workup at this time. 12:30 Labs WNL. CXR unremarkable and EKG NSR. Pt medically optimized for psychiatric evaluation/admission. Pending [facility] evaluation. Disposition - Clinical Impression Clinical Impression: Schizophrenia - Disposition Disposition: Transfer of Care Disposition Time: 15:00 Condition: STABLE Additional Instructions: MR COSTA IS MEDICALLY AND PSYCHIATRICALLY CLEARED FOR INCARCERATION Instructions: Schizophrenia (DC)
--- NOTE | 2018-05-17 11:10 | RAD ---
Date of service: 05/17/2018 HISTORY: possible admission COMPARISON: May 14 2018 FINDINGS: LUNGS: No active pulmonary disease. PLEURA: No significant pleural effusion identified, no pneumothorax apparent. CARDIOVASCULAR: No aortic atherosclerotic calcification present. Heart size top normal no pulmonary vascular congestion. OSSEOUS STRUCTURES: No significant abnormalities. VISUALIZED UPPER ABDOMEN: Normal. OTHER FINDINGS: None. IMPRESSION: No active disease. No interval pathology noted.
[2018-05-17 11:26] LABS: BASO % 0.2 % (0.0-2.0); EOS # 0.1 K/uL (0.0-0.7); EOS % 0.7 % (0.0-4.0); HEMOGLOBIN 14.5 g/dL (12.0-18.0); LYMPH # 2.1 K/uL (1.0-4.3); LYMPH % 22.7 % (20.0-40.0); MEAN CELL VOLUME 89.2 fl (80.0-94.0); MEAN CORPUSCULAR HEMOGLOBIN 30.8 pg (27.0-31.0); MEAN CORPUSCULAR HGB CONC 34.5 g/dL (33.0-37.0); MEAN PLATELET VOLUME 7.8 fl (7.2-11.7); MONO % 10.3 % (0.0-10.0); NEUT # 6.2 K/uL (1.8-7.0); NEUT % 66.1 % (50.0-75.0); RBC 4.69 Mil/uL (4.40-5.90); RED CELL DISTRIBUTION WIDTH 13.8 % (11.5-14.5); WHITE BLOOD COUNT 9.4 K/uL (4.8-10.8)
[2018-05-17 11:42] LABS: BLOOD UREA NITROGEN 16 mg/dl (9-20); CALCIUM 10.3 mg/dL (8.4-10.2); GFR NON-AFRICAN AMERICAN > 60
[2018-05-17 12:42] LABS: BARBITURATES, UR NEGATIVE (NEGATIVE); BENZODIAZEPINES, UR NEGATIVE (NEGATIVE); OPIATES, UR NEGATIVE (NEGATIVE); PHENCYCLIDINE, UR NEGATIVE (NEGATIVE)
[2018-05-17 13:13] LABS: URINE BILIRUBIN NEGATIVE (NEGATIVE); URINE BLOOD NEGATIVE (NEGATIVE); URINE CLARITY CLEAR (Clear); URINE COLOR YELLOW (YELLOW); URINE GLUCOSE (UA) NEG (NEGATIVE); URINE LEUKOCYTE ESTERASE NEG Leu/uL (Negative); URINE PROTEIN NEGATIVE (NEGATIVE); URINE UROBILINOGEN 0.2-1.0 mg/dL (0.2-1.0)
--- NOTE | 2018-05-17 15:13 | ED PDOC ---
- Laboratory Results Result Diagrams: 05/17/18 10:25 05/17/18 10:25 Lab Results: Urine Color Yellow (YELLOW) 05/17/18 12:56 Urine Clarity Clear (Clear) 05/17/18 12:56 Urine pH 6.0 (5.0-8.0) 05/17/18 12:56 Ur Specific [place] 1.014 (1.003-1.030) 05/17/18 12:56 Urine Protein Negative mg/dL (NEGATIVE) 05/17/18 12:56 Urine Glucose (UA) Neg mg/dL (NEGATIVE) 05/17/18 12:56 Urine Ketones Trace mg/dL (NEGATIVE) 05/17/18 12:56 Urine Blood Negative (NEGATIVE) 05/17/18 12:56 Urine Nitrate Negative (NEGATIVE) 05/17/18 12:56 Urine Bilirubin Negative (NEGATIVE) 05/17/18 12:56 Urine Urobilinogen 0.2-1.0 mg/dL (0.2-1.0) 05/17/18 12:56 Ur Leukocyte Esterase Neg [place]/uL (Negative) 05/17/18 12:56 Urine RBC (Auto) 3 /hpf (0-3) 05/17/18 12:56 Urine Microscopic WBC 1 /hpf (0-5) 05/17/18 12:56 - ECG O2 Sat by Pulse Oximetry: 98 (RA) Pulse Ox Interpretation: Normal Medical Decision Making Medical Decision Making: Time: 1500 --Patient care endorsed by Dr. Navarro, pending screen by [facility] for involuntary psych. Patient is medically stable at this time. Cooperative without acute psychiatric distress. Time: 1899 --Patient continues to be cooperative in no distress. --[facility] ceramic restorer was in ED but was called away for psychiatric emergency in the field. --Patient is still pending psychiatric screening. Time: 1949 --Patient evaluated by [facility] screener, who discussed with Dr. Mcgill. Dr Mcgill deemed patient psychiatrically stable for discharge to [facility]. --Patient is stable to be placed into police custody. Scribe Attestation: Documented by Fabio Rosenberg, acting as a scribe for Isa Salcedo MD. Provider Scribe Attestation: All medical record entries made by the Scribe were at my direction and personally dictated by me. I have reviewed the chart and agree that the record accurately reflects my personal performance of the history, physical exam, medical decision making, and the department course for this patient. I have also personally directed, reviewed, and agree with the discharge instructions and disposition. Disposition - Clinical Impression Clinical Impression: Schizophrenia - POA Present On Arrival: None - Disposition Disposition: Discharged/Transfer to Law Enforcement Disposition Time: 19:50 Condition: STABLE Additional Instructions: MR COSTA IS MEDICALLY AND PSYCHIATRICALLY CLEARED FOR INCARCERATION Instructions: Schizophrenia (DC)
--- NOTE | 2018-05-17 15:41 | CARD ---
APPROVED REPORT Date of service: 05/17/2018 EKG Measurement Heart [id number] <Conclusion> Normal sinus rhythm Normal ECG
[2018-05-17 20:16] VITALS: BP 139/78; PULSE 89; RESP 16; TEMP 98.7
[2018-05-17 21:34] VITALS: O2SAT 98
== END 2018-05-17 20:25 ==
LOC: H.ER 06:19
DX: F20.9 Schizophrenia, unspecified (principal); F41.0 Panic disorder [episodic paroxysmal anxiety]